=== PATIENT | male | born 1950 | race Caucasian/White ===

== ENCOUNTER 2020-11-19 08:37 | Emergency (ER) | payer MEDICARE, SELFPAY ==
--- NOTE | 2020-11-19 08:50 | ED.GENADULT ---
HPI - General Adult General Chief complaint: Skin/Abscess/Foreign Body Stated complaint: insect bite Time Seen by Provider: 11/19/20 08:50 Source: patient Mode of arrival: ambulatory Limitations: no limitations History of Present Illness HPI narrative: 70-year-old male patient presents to the [facility] with complaints of an insect bite to the left ear that occurred yesterday. Patient states this is his third bite within the last couple of weeks his most recent 1 before yesterday was 2 weeks ago. Patient states he was seen at [facility] and given some steroid cream and some oral steroids to help with his reaction. Patient states he is concerned because the reactions tend to get more more severe. Patient denies any chest pain, shortness of breath or trouble swallowing at this time. Patient states he does notice that the swelling is going down to the lateral side of the neck and is starting to make his neck stiff. Patient states he did take a Zyrtec yesterday after the sting. Related Data Allergies Allergy/AdvReac Type Severity Reaction Status Date / Time bee venom protein (honey bee) Allergy Intermediate Swelling Verified 11/19/20 09:17 [bees] hornet venom Allergy Intermediate Swelling Verified 11/19/20 09:18 Review of Systems Review of Systems: CONSTITUTIONAL: Denies fever, chills, or sweats. EYES: Denies visual changes, redness, or discharge. ENT: Denies rhinorrhea, congestion, sore throat, or otalgia. CARDIOVASCULAR: Denies chest pain, palpitations, or edema. RESPIRATORY: Denies cough or dyspnea. GASTROINTESTINAL: Denies abdominal pain, nausea, vomiting, or diarrhea. GENITOURINARY: Denies dysuria or hematuria. SKIN: Denies rash or itching. Positive swelling to left ear and lateral side of the neck MUSCULOSKELETAL: Denies back pain, joint pain, or myalgia. NEUROLOGIC: Denies headache, numbness, or weakness. PSYCHIATRIC: Denies anxiety or depression. [facility] Past Medical History Medical History (Updated 11/19/20 @ 09:29 by ADRIANO Leos) Hypercholesteremia Hypertension Surgical History Surgical History (Updated 11/19/20 @ 08:51 by ADRIANO Leos) H/O inguinal hernia repair Family History Family History (Updated 11/19/20 @ 08:52 by ADRIANO Leos) Other Diabetes mellitus Heart disease Comments At the time of my signature I agree with nursing past medical history, surgical, social, and family history. There is no relevant family history pertinent to the presenting complaint. Exam Narrative: GENERAL: Well-appearing, well-nourished, and in no acute distress. HEAD: Normocephalic, atraumatic. EYES: PERRLA and EOMI. ENT: Nares clear, no rhinorrhea or epistaxis. Mucous membranes moist. Posterior pharynx with no erythema, tonsillar Sima, exudates or lesions present. NECK: Supple. No lymphadenopathy. No stridor noted on auscultation CHEST: Clear to auscultation. No respiratory distress. HEART: Regular rate and rhythm. No murmur heard. Normal peripheral pulses. ABDOMEN: Soft, nontender, nondistended, normal active bowel sounds. EXTREMITIES: Normal range of motion. No edema. SKIN: Warm, dry, no rash. Patient has swelling noted to the left earlobe that progresses down to the lateral side of the neck but there is no warmth present there is no open wounds or discharge. NEURO: No focal deficits. Alert and oriented x3. Course Vital Signs Vital signs: Vital Signs Temperature 36.2 C L 11/19/20 09:01 Pulse Rate 79 11/19/20 09:01 Respiratory Rate 16 11/19/20 09:01 Blood Pressure 151/76 H 11/19/20 09:01 Pulse Oximetry 99 11/19/20 09:01 Temperature 36.2 C L 11/19/20 09:01 Pulse Rate 79 11/19/20 09:01 Respiratory Rate 16 11/19/20 09:01 Blood Pressure 151/76 H 11/19/20 09:01 Pulse Oximetry 99 11/19/20 09:01 The patient has been informed that they may have pre-hypertension or Hypertension based on a BP reading in the department. I recommend that th
[2020-11-19 09:01] VITALS: BP 151/76; PULSE 79; RESP 16; TEMP 36.2; O2SAT 99
== END 2020-11-19 09:40 | disposition home or self-care (01) ==
PROVIDERS: Emergency Provider Nurse Practitioner Family; PCP Internal Medicine
DX: S00.462A Insect bite (nonvenomous) of left ear, initial encounter (principal); I10 Essential (primary) hypertension; W57.XXXA Bitten or stung by nonvenomous insect and other nonvenomous arthropods, initial encounter
CPT/HCPCS: 99213; G0463

== ENCOUNTER → 2022-10-22 12:53 | Outpatient (CLI) | payer MEDICARE, SELFPAY ==
--- NOTE | ~2022-10-22 | XR_ITS ---
Right Knee Technique: AP, lateral, and sunrise views were obtained. Clinical History: Pain Findings: No fracture or dislocation is seen. There is medial compartment narrowing with medial joint line osteophyte formation. There are small osteophytes at the intercondylar notch. There is minimal patellar spurring. Soft tissues are unremarkable. No joint effusion is seen. 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 Minimal patellar spurring. Reviewed, dictated and finalized at location M. 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 Minimal patellar spurring.
== END ==
PROVIDERS: PCP Internal Medicine; Visit Provider Internal Medicine
DX: M25.561 Pain in right knee (principal)
CPT/HCPCS: 73562